=== PATIENT | female | born 1995 | race Hispanic/Latino ===

== ENCOUNTER 2017-12-07 00:53 | Inpatient (IN) | payer OTHER ==
[2017-12-07] MEDS ORDERED: MEPERIDINE HCL 25 MG/0.5 ML IV PRN (05:58)
[2017-12-07] MEDS ORDERED: CARBOPROST TROME 250 MCG/ML IM PRN (05:58)
[2017-12-07] MEDS ORDERED: METHYLERGONOVINE 0.2MG/ML AMP IM PRN (05:58)
[2017-12-07] MEDS ORDERED: PROMETHAZINE 25 MG/ML VIAL IM PRN (05:58)
[2017-12-07] MEDS ORDERED: Ringers Lactate 1,000 ML IV PRN (05:58)
[2017-12-07] MEDS ORDERED: BUTORPHANOL 1 MG/ML INJ IV PRN (05:58)
[2017-12-07] MEDS ORDERED: Ringers Lactate 1,000 ML IV SCH (06:00)
[2017-12-07] MEDS ORDERED: OXYTOCIN/LR 20 UNIT/1,000 ML BAG IV SCH (06:00)
[2017-12-07 06:12] LABS: RPR Titer ND
[2017-12-07 06:15] LABS: Urine Appearance CLEAR; Urine Bilirubin NEGATIVE (NEG); Urine Blood NEGATIVE (NEG); Urine Color YELLOW; Urine Glucose NEGATIVE (NEG); Urine Protein NEGATIVE (NEG); Urine Specific Gravity 1.025 (1.005-1.030); Urine Urobilinogen 0.2 mg/dL (0.2-1.0)
[2017-12-07 06:19] LABS: Urine Microscopic Reflex NO UMIC
[2017-12-07 06:27] LABS: Absolute Lymphocytes (CBC) 2.9 K/uL (0.7-4.9); Absolute Neutrophil 8.5 K/uL (1.8-8.0); Basophils % 0.4 % (0-1.3); Eosinophils % 0.8 % (0-4.4); Hematocrit 32.1 % (36.0-45.0); Lymphocytes % 23.3 % (15.3-44.8); MCH 31.5 pg (27.0-35.0); MCV 94.3 fL (80-100); MPV 7.9 fL (7.6-11.3); Monocytes % 8.1 % (3.3-12.3)
[2017-12-07 06:51] VITALS: BMI 27.3
--- NOTE | 2017-12-07 09:25 | PREOPHP ---
Date of Admission: 12/07/2017 This is a 22-year-old, primigravida, at 39 weeks 5 days for induction. Rh positive, immune to Rubell a. Negative beta strep screen. 2.5 cm, 50% effaced, vertex, -1 station. Rupture of membranes, araceli r fluid. Gita every 2 minutes. Labor talk given. Anticipate delivery sometime later today. BRET/JOYCE Voice ID: [id number]
[2017-12-07] MEDS ORDERED: ACETAMINOPHEN 500 MG TAB PO ONE (13:58)
[2017-12-07] MEDS ORDERED: ACETAMINOPHEN 500 MG TAB ONE (14:19)
--- NOTE | 2017-12-07 17:03 | PN ---
Subjective: The patient is now on 20 milliunits of Pitocin, cindy regularly. FHTs to have goo d variability. She is 2.5 cm, 60% effaced, vertex, -1 station, well applied. Anticipate more rapid progress once she gets to be about 4-5 cm. Full discussion with the patient. She has had [address] adol and 25 of Phenergan and doing well. BRET/JOYCE Voice ID: [id number] Report ID: [id number]
[2017-12-07] MEDS ORDERED: ROPIVACAINE HCL 100 ML IV PRN (17:33)
[2017-12-07] MEDS ORDERED: ROPIVACAINE HCL 0.2% 20ML AMP IV ONE (17:33)
[2017-12-07] MEDS ORDERED: FENTANYL CITR 100 MCG/2 ML IV ONE (17:34)
--- NOTE | 2017-12-07 20:34 | PN ---
The patient is now 3 cm, 80% effaced, but the baby is straight occiput posterior. She is instructed in pelvic rocks and we need to do those. Nurses have been trying to get her to do it but so far she is not really been cooperative. She knows if the baby stays in this position it may keep the labor g oing longer and possibly even results in failure to dilate and a . Her baby is not that larg e. I thinks she has an adequate pelvis, so we will get her do pelvic rocks and recheck her in about an hour to hour and a half. BRET/JOYCE Voice ID: [id number] Report ID: [id number]
[2017-12-07] MEDS ORDERED: NA CIT/CITRIC AC 30 ML ORAL UDC PO ONE (20:52)
[2017-12-07] MEDS ORDERED: CEFAZOLIN/NS 1gm 1 GM/50 ML BAG IVPB SCH (21:00)
[2017-12-07] MEDS ORDERED: METOCLOPRAMIDE 10 MG/2mL INJ IV SCH (21:00)
[2017-12-07] MEDS ORDERED: LIDOCAINE 2% INJ, 20 mL 0 ML ONE (21:22)
[2017-12-07] MEDS ORDERED: LIDOCAINE 2% W/EPI 1:200,000 MPF 20 ML VIAL IM ONE (21:25)
[2017-12-07] MEDS ORDERED: OXYTOCIN 10 UNIT/ML ML IV ONE (21:32)
[2017-12-07] MEDS ORDERED: MORPHINE SULFATE/PF 1 MG/ML (10 ML AMP) ONE (21:32)
[2017-12-07] MEDS ORDERED: CARBOPROST TROME 250 MCG/ML IM ONE (21:43)
[2017-12-07] MEDS ORDERED: METHYLERGONOVINE 0.2MG/ML AMP IM ONE (21:43)
[2017-12-07] MEDS ORDERED: EPHEDRINE SULF 50 MG/5 ML SYR ONE (21:52)
[2017-12-07 22:17] LABS: RPR (Rapid Plasma Reagin) NON-REACT (NON-REACT)
--- NOTE | 2017-12-07 23:31 | PN ---
This is a 22-year-old, 2, para 0, at 39 weeks 5 days. During the labor, progressed to 3 cm b ut has stopped at that point. She is occiput posterior. She has been doing pelvic rocks but has demetrius wn no change in over 4 hours now. The baby looks good on the monitor. Her vital signs are stable. She has agreed we should proceed with a at this point. Infection, blood loss, anesthetic co mplications, injury to bladder, bowel, ureter, postoperative complications, clots in legs, pneumonia discussed. The patient knows fully well this does not constitute all the possible problems that coul d occur during or following surgery. We will give her to 2 g of Ancef for prophylaxis. She has an e pidural which is functioning. Dr. Kim will boost the dose in the epidural. Preparations are abdi ng made at this time for expeditious . BRET/JOYCE Voice ID: [id number] Report ID: [id number]
--- NOTE | 2017-12-07 23:40 | OP ---
Surgeon: Jitendra Zavala MD This is a 22-year-old, 2, para 0, at 39 weeks 5 days, failure to progress in labor. The agustin ent progressed to 3 cm, but in spite of good firm contractions, did not change for the next 4-5 hours . Noted to be straight occiput posterior. Rh positive, immune to Rubella. Negative beta Strep scre en. The patient was taken to surgery. Full preoperative counseling concerning procedure and possibl e complications, including infection, blood loss, anesthetic complications, injury to bladder, bowel, ureter, postoperative complications, clots in legs, and pneumonia discussed. The patient knows full y well this does not constitute all the possible problems that could occur during or following surger y. Epidural during the labor, not sufficient for , so Dr. Kim perform spinal block anes thesia. Worked very well. Dr. Castellano was endodontic assistant surgeon. After the patient was prepped and draped, timeout was performed. Pfannenstiel incision was then crea nasir. The incision was carried to the fascia. The fascia was incised, and the incision carried trans versely bilaterally. Anterior fascial plane was developed with both blunt and sharp dissection. The underlying rectus muscle was . Peritoneum elevated and entered bluntly. Low transverse ut erine incision created. A 7 pound, 7 ounce male infant was delivered without difficulties. Apgars 9 and 9. Cord blood specimen was obtained. The placenta was removed manually. Uterus cleared of francisco t and blood and exteriorized. Uterus closed with a running-locked stitch of #1 chromic followed by a single [id number] stitch in the right angle for complete hemostasis. Mild hypertonus. 0.2 mg of Methergine given. Estimated blood loss 7923-1753 cc. Sacral promontory noted to be very prominen t. Uterus replaced in the peritoneal cavity. Gutters clear of clot and blood. Incision line checke d again. No further bleeding. The fascia was closed with #1 Vicryl after the rectus muscles were pu t together with 2 stitches of 0 Vicryl. Subcutaneous tissue was closed with 3-0 plain absorbable sta ples and then metal sim. The patient had been given 2 g of Ancef. Tolerated all procedures well . She was transferred back to her room in good condition. Final Diagnoses: Term intrauterine , 39 weeks 5 days, failure to progress in labor, primary section, epidural for labor, spinal block for section, mild uterine hypotonus. BRET/JOYCE Voice ID: [id number] Report ID: [id number]
[2017-12-08] MEDS ORDERED: PROMETHAZINE 25 MG/ML VIAL ONE (00:59)
[2017-12-08] MEDS ORDERED: D5LR 1,000 ML with OXYTOCIN 20 UNIT IV SCH ×2 (04:00)
[2017-12-08] MEDS ORDERED: CEFAZOLIN/SWI 2gm 2 GM/20 ML SYR ONE (04:56)
[2017-12-08] MEDS ORDERED: CEFAZOLIN 2 GM in NA CHLORIDE 0.9% 100 ML IVPB ONE (05:00)
[2017-12-08] MEDS ORDERED: FAMOTIDINE 20 MG/2 ML VIAL IV SCH (09:00)
[2017-12-08] MEDS ORDERED: Oxycodone HCl/Acetaminophen 1 TAB TAB PO PRN (11:16)
[2017-12-08] MEDS: IBUPROFEN 400 MG TAB PO PRN (11:27)
[2017-12-08] MEDS ORDERED: IBUPROFEN 200 MG TAB PO ONE (11:42)
--- NOTE | 2017-12-08 11:56 | PN ---
Postoperatively, doing quite well. Afebrile. Lochia is normal. No complaints whatsoever. She has not taken any pain medicines yet. We will discontinue her Zhong sometime later this afternoon, take out the IV later this morning if she can ambulate without any problems. We will begin to feed her la ter on this afternoon and possibly send her home tomorrow afternoon or evening or if not, Wednesday morn ing. Full discussion. She knows to call the office today to make an appointment for next week. She is given instructions for dismissal to report fever of 100 degrees or more, severe pain, heavy bleed ing, or any other type of problems when she does go home. The patient has had her Tdap shot already. She has no post spinal block problems. She is Rh positive and immune to Rubella. BRET/JOYCE Voice ID: [id number] Report ID: [id number]
[2017-12-08] MEDS: Oxycodone HCl/Acetaminophen 1 TAB TAB PO PRN ×2 (16:25→23:53)
--- NOTE | 2017-12-08 17:10 | RAD REPORT ---
EXAM DESCRIPTION: RAD - Abdomen 1 View (KUB) - 12/08/2017 5:05 pm CLINICAL HISTORY: Pain COMPARISON: None. FINDINGS: The bowel gas pattern is non-obstructive. No evidence of free air or pneumatosis. Moderate fecal retention noted. Skin sim are present inferiorly. No pathologic calcifications. IMPRESSION: Moderate fecal retention in the colon.
[2017-12-09] MEDS ORDERED: CEFTRIAXONE 1000 MG/VIAL IM ONE (00:59)
[2017-12-09] MEDS ORDERED: LIDOCAINE 1% MPF 2 ML AMPULE ONE ×2 (01:37→01:38)
[2017-12-09 03:49] LABS: HBsAG Nonreactive (Nonreactive)
[2017-12-09 04:52] LABS: Absolute Lymphocytes (CBC) 2.1 K/uL (0.7-4.9); Absolute Monocytes 1.5 K/uL (0.1-1.3); Absolute Neutrophil 18.1 K/uL (1.8-8.0); Basophils % 0.1 % (0-1.3); Eosinophils % 0.4 % (0-4.4); Hematocrit 27.7 % (36.0-45.0); Lymphocytes % 9.6 % (15.3-44.8); MCH 32.8 pg (27.0-35.0); MCV 93.7 fL (80-100); MPV 8.2 fL (7.6-11.3); Monocytes % 6.7 % (3.3-12.3); RBC Red Blood Cell Count 2.96 M/uL (3.86-4.86)
[2017-12-09 05:13] LABS: Blood Morphology Comment NOT SEEN (NOT SEEN); Platelet Estimate ADEQ
[2017-12-09] MEDS: Oxycodone HCl/Acetaminophen 1 TAB TAB PO PRN (10:46)
--- NOTE | 2017-12-09 11:51 | PN ---
Yesterday had epigastric discomfort. Upright of the abdomen showed no ileus or other problems and th at has subsequently resolved. Incisions looked good. During the night, the patient had a fever of 1 02. White count this morning was 21,000. The patient was given Rocephin 1 g IM last night. We will keep her until tomorrow morning, give her another gram of Rocephin around midnight tonight and then plan to send her home with Augmentin twice a day for 5-7 days. Probable mild endometritis. Full dis cussion with patient and family. Doing well this morning. She has been ambulating, voiding, and pas sing gas. Anticipate dismissal tomorrow morning if all temperatures remain normal. BRET/JOYCE Voice ID: [id number] Report ID: [id number]
[2017-12-09] MEDS: IBUPROFEN 400 MG TAB PO PRN (15:22)
[2017-12-09] MEDS ORDERED: IBUPROFEN 200 MG TAB PO ONE (15:45)
[2017-12-09] MEDS: CLINDAMYCIN HCL 150 MG CAP PO SCH ×2 (16:58→21:09)
[2017-12-10] MEDS ORDERED: CEFTRIAXONE 1000 MG/VIAL IM ONE
[2017-12-10] MEDS ORDERED: LIDOCAINE 1% MPF 2 ML AMPULE ONE ×2 (00:10→00:13)
[2017-12-10] MEDS: Oxycodone HCl/Acetaminophen 1 TAB TAB PO PRN ×2 (03:10→07:41)
[2017-12-10 07:19] VITALS: BP 108/64; TEMP 96.1
[2017-12-10] MEDS: CLINDAMYCIN HCL 150 MG CAP PO SCH (08:32)
--- NOTE | 2017-12-11 00:34 | DS ---
Date of Discharge: 12/10/2017 A 22-year-old primigravida at 39 weeks 5 days, underwent primary section for failure to prog ress in labor, persistent occiput posterior. Delivered of an estimated 7-pound male , Apgars 9 and 9. Epidural anesthesia during the labor, spinal block for delivery. Noted to have mild uterine hypotonus, 1100 cc blood loss, responded well to IV drip Pitocin, 0.2 mg of Methergine during the pr ocedure, was given 2 g of Ancef for prophylaxis before the procedure and afterwards. At the time of surgery noted to have the placental bed slightly shaggy. , had a temperature of 102.4, was started on Rocephin 1 g IM, and then given another g 24 hours later. She was also put on Cleocin 30 0 mg p.o. q.6 hours. She is now afebrile for the last 4 to 5 readings. She will be dismissed with A ugmentin to be taken 1000 mg b.i.d. for 7 days. Yeast precautions given. She is to see me in the of cee on Wednesday of next week for followup. She is to report any temperature elevation of 100 degrees or greater, severe pain, heavy bleeding, or any other type of abnormalities. She has the number for Labor and Delivery and will call over the weekend should she have any problems. No post spinal block problems are noted. She has had her Tdap administration. Final Diagnoses: 1.Term intrauterine , 39 weeks 5 days, failure to progress in labor, persistent occiput pos terior, plus very prominent sacral promontory. 2.Mild uterine hypotonus, probable endometritis, treated and responded. BRET/JOYCE Voice ID: [id number] Report ID: [id number]
== END 2017-12-10 08:46 | disposition home or self-care (01) | DRG 766 ==
LOC: 2ND-WC 05:09
PROVIDERS: ADMIT Specialist; ATTEND Specialist
PROC: 10907ZC Drainage of Amniotic Fluid, Therapeutic from Products of Conception, Via Natural or Artificial Opening (ICD-10-PCS; 2017-12-07)
PROC: 3E033VJ Introduction of Other Hormone into Peripheral Vein, Percutaneous Approach (ICD-10-PCS; 2017-12-07)
PROC: 10D00Z1 Extraction of Products of Conception, Low, Open Approach (ICD-10-PCS; principal; 2017-12-07 21:00)
DX: O62.0 Primary inadequate contractions (principal); Z37.0 Single live birth; Z3A.39 39 weeks gestation of pregnancy
CPT/HCPCS: 36415; 74018; 81003; 85014; 85025; 86592; 86850; 86900; 86901; 87340; 88305; 88307; J0595; J0690; J2001; J2210; J2550; J2590; J2765; J2795; J3010

== ENCOUNTER 2023-05-21 12:52 | Emergency (ER) | payer OTHER, SELFPAY ==
--- OUTSIDE RECORDS SUMMARY | 2023-05-21 12:55 | XMS REPORT | Continuity of Care Document ---
:1995 Author Organization [facility] t Address [address] [place] [address] Care Team Providers Name Role Phone PCP, PATIENT DOES NOT HAVE A Primary Care Physician UnavailBELIA Arriola Attending Clinician Unavailable GENARO VASQUEZ Attending Clinician Unavailable GENARO VASQUEZ Attending Clinician Unavailable Doctor Unassigned, [place] Attending Clinician Unavailable FUENTES FERRARI Attending Clinician Unavailable Nurse, [facility] Attending Clinician Unavailable Arleth Fox MD Attending Clinician ARLETH FOX Attending Clinician Unavailable Payers Payer Name Policy Type Policy Number Effective Date Expiration Date S dewey [facility] - [id number] 2020 00:00:00 OUT OF STATE Problems Condition Condition Condition Status Onset Resolution Last Treating Co mments Source Name Details Category Date Date Treatment Clinician Date Disease Active Uni vers examinatio examinatio 03-31 it y of n [place] test[place] 00 Medica l result result Branch Encounter Encounter Disease Active Uni vers for for 03-31 [place] 00 Medical progestin- progestin- Br anch releasing releasing intrauteri intrauteri ne ne contracept contracept danette device danette device (IUD) (IUD) Encounter Encounter Disease Active Uni vers for for 03-24 [place] of Nex[place] 00 [place] Disease Active Univers control control 03-24 [place] [facility] Generalize Generalize Disease Active U nivers d anxiety d anxiety 7-19 ity of disorder disorder 00:00: [place] 00 [facility] Open wound Open wound Disease Active U nivers of finger, of finger, 7-19 it y of initial initial 00:00: [place] encounter encounter 00 [facility] Branch Nexplanon Nexplanon Disease Active Uni vers insertion insertion 9-10 ity of 00:00: [address] Allergies, Adverse Reactions, Alerts Allergy Allergy Status Severity Reaction(s) Onset Inactive Treating Comm ents Source Name Type Date Date Clinician NO KNOWN Drug Active Univers ALLERGIE Class ity of S [facility] Social History Social Habit Start Date Stop Date Quantity Comments Source History SDOH University o f Alcohol Frequency [facility] edical Branch History SDOH University o f Alcohol Std [place] [facility] Dr[facility] Branch History SDOH University o f Alcohol Binge [place] Medic [facility] [place] Exposure to 2022-06-23 2022-07-03 Not sure University SARS-CoV-2 00:00:00 13:22:00 [facility] (event) [place] Alcohol intake 2022-07-03 2022-07-03 Current drinker Unive rsity of 00:00:00 00:00:00 of alcohol [facility] (finding) [place] Tobacco use and 2022-03-31 2022-03-31 Smokeless tobacco Un iversity of exposure 00:00:00 00:00:00 non-user [facility] Alcohol Comment 2021-05-09 2021-05-09 2-3x a week Universi ty of 00:00:00 00:00:00 [facility] Sex Ass[birth year] At [birth year] Universit y of 00:00:00 00:00:00 [facility] Smoking Status Start Date Stop Date Source Never smoked tobacco [facility] Medications Ordered Filled Start Stop Current Ordering Indication Dosage Frequency Signature Comments Components Source Medication Medication Date Date Medication? Clinician (SIG) Name Name No known 2021-09 No No known Unive rs medications 0-28 medication it y of 14:16: s [address] No known 2021-09 No No known Unive rs medications 0-28 medication it y of 14:16: s [address] levonorgest 2021- No [id number] 1{devic Univers reL 7-26 07-26 e} ity of (KYLEENA) 20:45: 19:43 [place] IUD 1 00 :00 [facility] levonorgest 2021- No [id number] 1{devi 1 Device, Univers reL 03-31 e} Intrauteri ity of (KYLEENA) 20:45: 19:43 [place] ONCE[place] I[place] 1 [place] :00 1 dose, On [facility] Branch 03/31/22 at 1545, Routine levonorgest 2021- No [id number] 1{devi Univers reL 03-31 e} ity of (KYLEENA) 20:45: 19:43 [place] IUD 1 00 :00 [facility] levonorgest 2021- No [id number] 1{devi 1 Device, Univers reL 03-31 e} Intrauteri ity of (KYLEENA) 20:45: 19:43 [place], ONCE[place] 1 00 :00 1 dose, On [facility] Branch 03/31/22 at 1545, Routine No known No No known Unive rs medications 03-31 medication it y of 14:41: s [address] No known No No known Unive rs medications 03-31 medication it y of 14:41: s [address] Vital Signs Vital Name Observation Time Observation Value Comments Source Systolic blood 2022-07-03 18:36:00 107 mm[Hg] Univer sity of pressure [facility] Diastolic blood 2022-07-03 18:36:00 70 mm[Hg] Unive rsity of [facility] Heart rate 2022-07-03 18:36:00 65 /min [facility] Body temperature 2022-07-03 18:36:00 37.17 Tracee [facility] Res[facility] rate 2022-07-03 18:36:00 16 /min [facility] Body height 2022-07-03 18:36:00 154.9 cm [facility] Body weight 2022-07-03 18:36:00 49.442 kg [facility] BMI 2022-07-03 18:36:00 20.60 kg/m2 [facility] Oxygen saturation in 2022-07-03 18:36:00 99 /min [facility] Arterial blood by [facility] Pulse oximetry [place] Systolic blood 2022-03-31 19:23:00 98 mm[Hg] Univer sity of pressure [facility] Diastolic blood 2022-03-31 19:23:00 64 mm[Hg] [facility] 2022-03-31 19:23:00 79 /min [facility] Body temperature 2022-03-31 19:23:00 36.61 Tracee [facility] Respiratory rate 2022-03-31 19:23:00 18 /min [facility] Body height 2022-03-31 19:23:00 154.9 cm [facility] Body weight 2022-03-31 19:23:00 48.671 kg [facility] BMI 2022-03-31 19:23:00 20.27 kg/m2 [facility] Procedures Procedure Date / Time Performed Performing Clinician [facility] ASSIGNMENT OF BENEFITS 2022-07-03 18:21:39 Doctor Unassigned, No [facility] DISCLOSURE AND 2022-03-31 05:01:00 Doctor Unassigned, No [facility] CONSENT, MEDICAL AND Name Medical [facility] SURGICAL PROCEDURES POCT TEST 2022-03-31 00:00:00 Genaro Vasquez [facility] Encounters Start End Encounter Admission Attending Care Care Encounter Source Date/Time Date/Time Type Type Clinicians Facility Department ID 2022-09-08 2022-09-08 Outpatient Roseline LEON [place] [id number] Univers 10:45:00 10:45:00 BELIA randle [facility] 2022-07-03 2022-07-03 Office Christina MSDELFINO GU 1.2.840.114 [id number] Univers 13:00:00 13:54:21 Visit Genaro RICKS [id number] it y of WOMEN'S [id number] [facility] [id number] [address] 2022-07-03 2022-07-03 Outpatient R CLAUDIOGENARO FLORES [facility] B [id number] Univers 13:00:00 13:54:21 LOUANNGENARO SAUCEDO david [facility] 2022-07-03 2022-07-03 Orders Doctor HENDRIX 1.2.840.114 [id number] Univers 00:00:00 00:00:00 Only Unassigned, DELILAH [id number] ity of [place] [facility] [id number] Vinod as [id number] [address] 2022-04-02 2022-04-02 Outpatient R VEGA [place] [id number] Univers 12:45:00 12:45:00 FUENTES [facility] 2022-03-31 2022-03-31 [facility] 1.2.840.114 [id number] Univers 14:00:00 14:30:00 Visit Genaro RICKS [id number] it y of WOMENS 4.2.7.2.686 [facility] [id number] [address] 2022-03-31 2022-03-31 Outpatient R CHRISTINA GENARO [facility] B [id number] Univers 14:00:00 14:00:00 CLAUDIOGENARO FLORES david [facility] 2022-03-31 2022-03-31 Outpatient R GENARO VASQUEZ [facility] B [id number] Univers 14:00:00 14:00:00 CLAUDIAGENARO THURSTON [facility] 2022-03-31 2022-03-31 Orders Doctor HENDRIX 1.2.840.114 [id number] Univers 00:00:00 00:00:00 Only Unassigned, DELILAH [id number] ity of [place] [facility] 4.2.7.2.686 Vinod as [id number] [address] 2022-03-30 2022-03-30 Nurse Nurse, Lkj [facility] 1.2.840.114 [id number] Univers 13:00:00 13:15:00 Visit Arleth Fox 350.1.13.10 ity of Genaro Vasquez [facility] 4.2.7.2.686 [facility] [id number] [address] 2022-03-30 2022-03-30 Outpatient R [place] [id number] Univers 13:00:00 13:00:00 ity [facility] 2022-03-30 2022-03-30 Outpatient R GENARO VASQUEZ [facility] B [id number] Univers 13:00:00 13:00:00 GENARO VASQUEZ [facility] 2022-03-18 2022-03-18 Outpatient R GENARO VASQUEZ [facility] B [id number] Univers 13:30:00 14:37:03 GENARO VASQUEZ [facility] 2022-03-18 2022-03-18 Office Christina [facility] 1.2.840.114 [id number] Univers 13:30:00 14:37:03 Visit Genaro RICKS [id number] it y of WOMEN'S 4.2.7.2.686 [facility] [id number] [address] 2022-03-16 2022-03-16 Outpatient R GEANRO VASQUEZ [facility] B [id number] Univers 08:30:00 08:30:00 LOUANNGENARO SAUCEDO [facility] 2022-02-17 2022-02-17 Outpatient R MELISSA FXON [place] [id number] Univers 15:00:00 15:00:00 ity [facility] 2021-05-16 2021-05-16 Office Arleth Fox [facility] 1.2.840.114 [id number] Univers 10:12:25 11:02:31 Visit Gianfranco 350.1.13.10 i ty max [place]2.7.2.686 [place] [id number] [place] dical [address] 2021-05-16 2021-05-16 Outpatient R MELISSA FOXN [place] [id number] Univers 10:00:00 10:00:00 ity [facility] 2021-05-15 2021-05-15 Outpatient R ARLETH FOX [place] [id number] Univers 09:00:00 09:00:00 ity [facility] 2021-05-09 2021-05-09 Office Arleth Fox [facility] 1.2.840.114 [id number] Univers 08:59:39 09:52:56 Visit [place] 350.1.13.10 i ty [place] 4[place]2.7.2.[place] [id number] [place] dical nal [address] [place] [address] 2021-05-09 2021-05-09 Office Arleth Fox [facility] 1.2.840.114 [id number] Univers 08:59:39 09:52:56 Visit [place] 350.1.13.10 i ty [place] 4.2.7.2.[place] [id number] [place] dic[address] 2021-05-09 2021-05-09 Outpatient R ARLETH FOX [place] [id number] Univers 08:30:00 08:30:00 ity [facility] 2021-05-09 2021-05-09 Orders Doctor RUMA 1.2.840.114 [id number] Univers 00:00:00 00:00:00 Only Unassigned, DELILAH 350.1.13.10 ity of [place] [facility] 4.2.7.2.686 Vinod as [id number] [address] 2021-05-09 2021-05-09 Orders Doctor RUMA 1.2.840.114 [id number] Univers 00:00:00 00:00:00 Only Unassigned, DELILAH 350.1.13.10 ity of [place] [facility] 4.2.7.2.686 Vinod as [id number] [address] 2021-02-20 2021-02-20 Outpatient ARLETH WEIR [place] [id number] Univers 09:00:00 09:00:[address] [facility] Results Test Description Test Time Test Comments Results Result Comments Source POCT TEST 2022-03-31 19:26:00 Test Item Value Reference Range Interpretation Comme nts POCT PREG (test code = 1605) Negative On board controls acceptable with C Line (test code = 3574) Yes POCT PREG LOT # (test code = 3575) POCT PREG TEST DATE (test code = 3576) [id number] 19:26:00 Test Item Value Reference Range Interpretation Comments POCT PREG (test code = 1605) Negative On board controls acceptable with C Yes Line (test code = 3574) POCT PREG LOT # (test code = 3575) POCT PREG TEST DATE (test code = 3576) [facility]
[2023-05-21 13:43] LABS: SARS-CoV-2 Antigen Rapid Res Negative (Negative)
--- NOTE | 2023-05-21 14:03 | EDPHYS ---
Physician Documentation [facility] Name: Linsey Rossi Age: 27 yrs Sex: Female : 1995 Arrival Date: 05/21/2023 Time: 12:52 Bed 11 Private MD: ED Physician Jarred Zamudio HPI: 05/21 14:48 This 27 yrs old Female presents to ER via Ambulatory with complaints of Pain sb4 All Over, Covid Exposed. 14:49 Onset: The symptoms/episode began/occurred 2 day(s) ago. Associated signs and sb4 symptoms:. patient with body aches, generalized weakness, fatigue, stuffy nose x 2 days. has been around people with covid and wants to be checked. no fever, nausea, vomiting, no underlying breathing conditions. Historical: - Allergies: 13:09 No Known Allergies; hb - Home Meds: 13:09 None [Active]; hb - PMHx: 13:09 None; hb - PSHx: 13:09 Ectopic ; section; Knee - Left; hb - Immunization history:: Adult Immunizations up to date. - Social history:: Smoking status: Patient denies any tobacco usage or history of. ROS: 14:51 Constitutional: Positive for body aches, fatigue, Negative for fever, poor PO intake. sb4 14:51 ENT: Positive for sinus congestion. 14:51 Respiratory: Positive for cough. 14:51 All other systems are negative. 14:52 Respiratory: Negative for shortness of breath, cough, wheezing, and pleuritic chest sb4 pain. Exam: 14:51 Constitutional: This is a well developed, well nourished patient who is awake, alert, sb4 and in no acute distress. Head/Face: Normocephalic, atraumatic. Eyes: Extra-ocular motions intact. Periorbital areas with no swelling, redness, or edema. ENT: Mucous membranes moist. Cardiovascular: Regular rate and rhythm with a normal S1 and S2. Respiratory: Lungs have equal breath sounds bilaterally, clear to auscultation and percussion. No rales, rhonchi or wheezes noted. No increased work of breathing, no retractions or nasal flaring. Abdomen/GI: Soft, non-tender, no distension. Skin: Warm, dry with normal turgor. Normal color with no rashes, no lesions, and no evidence of cellulitis. MS/ Extremity: Pulses equal, no cyanosis. Neurovascular intact. Full, normal range of motion. Neuro: Awake and alert, GCS 15, oriented to person, place, time, and situation. Cranial nerves II-XII grossly intact. Motor strength 5/5 in all extremities. Sensory grossly intact. Cerebellar exam normal. Normal gait. Vital Signs: 13:08 BP 111 / 97; Pulse 74; Resp 16; Temp 99.1(O); Pulse Ox 100% on R/A; Weight 52.16 kg; hb Height 5 ft. 1 in. ; Pain 7/10; 13:08 Body Mass Index 21.73 (52.16 kg, 154.94 cm) hb 13:08 Pain Scale: Adult hb MDM: 13:02 Patient medically screened. sb4 14:51 Differential diagnosis: viral Infection, bacterial infection, URI, bronchitis. Data sb4 reviewed: vital signs, nurses notes, lab test result(s), and as a result, I will discharge patient. Counseling: I had a detailed discussion with the patient and/or guardian regarding the historical points, exam findings, and any diagnostic results supporting the discharge/admit diagnosis, lab results, to return to the emergency department if symptoms worsen or persist or if there are any questions or concerns that arise at home. 05/21 13:07 Order name: SARS RAPID; Complete Time: 13:50 sb4 05/21 13:07 Order name: Flu; Complete Time: 13:53 sb4 Administered Medications: No medications were administered Disposition: 15:02 Co-signature as Attending Physician, Jarred QUISPE was immediately available on-site ms3 in the Emergency Department for consultation in the care of the patient. Disposition Summary: 05/21/23 14:02 Discharge Ordered Location: Home sb4 Problem: new sb4 Symptoms: are unchanged sb4 Condition: Stable sb4 Diagnosis - Acute upper respiratory infection, unspecified sb4 Followup: sb4 - With: Private Physician - When: As needed - Reason: Recheck today's complaints, Continuance of care, Re-evaluation by your physician Discharge Instructions: - Discharge Summary Sheet sb4 - Viral Respiratory Infection, [id number] sb4 Forms: - Work release form sb4 - Medication Reconciliation Form sb4 - Thank You Letter sb4 - Antibiotic Education sb4 - Prescription Opioid Use sb4 - Patient Portal Instructions sb4 - Leadership Thank You Letter sb4 Signatures: Dispatcher [employer] Evelina Torre, RN Jarred Salcido DO DO ms3 Bertha Moran, JUAN MARTINEZ sb4
--- NOTE | 2023-05-21 14:03 | ER ---
Nurse's Notes [facility] Name: Linsey Rossi Age: 27 yrs Sex: Female : 1995 Arrival Date: 05/21/2023 Time: 12:52 Bed 11 Private MD: Diagnosis: Acute upper respiratory infection, unspecified Presentation: 05/21 13:08 Chief complaint: Fatigue, malaise, headache, body aches, and nausea x 2 days. Coworkers hb recently tested COVID +. Coronavirus screen: Client presents with at least one sign or symptom that may indicate coronavirus-19. Provider contacted for isolation considerations. Ebola Screen: No symptoms or risks identified at this time. Initial Sepsis Screen: Does the patient meet any 2 criteria? No. Patient's initial sepsis screen is negative. Does the patient have a suspected source of infection? No. Patient's initial sepsis screen is negative. Risk Assessment: Do you want to hurt yourself or someone else? Patient reports no desire to harm self or others. Onset of symptoms was May 20, 2023. 13:08 Method Of Arrival: Ambulatory hb 13:08 Acuity: MARCIN 4 hb Historical: - Allergies: 13:09 No Known Allergies; hb - Home Meds: 13:09 None [Active]; hb - PMHx: 13:09 None; hb - PSHx: 13:09 Ectopic ; section; Knee - Left; hb - Immunization history:: Adult Immunizations up to date. - Social history:: Smoking status: Patient denies any tobacco usage or history of. Screenin:00 [facility] ED Fall Risk Assessment (Adult) Score/Fall Risk Level 0 - 2 = Low Risk hb Oriented to surroundings, Maintained a safe environment. Abuse screen: Denies threats or abuse. Denies injuries from another. Nutritional screening: No deficits noted. Tuberculosis screening: No symptoms or risk factors identified. Assessment: 13:40 General: Appears in no apparent distress. Behavior is calm, cooperative. Pain: Pain hb currently is 7 out of 10 on a pain scale. Neuro: Level of Consciousness is awake, alert, obeys commands, Oriented to person, place, time, situation, Reports headache. Cardiovascular: Patient's skin is warm and dry. Respiratory: Respiratory effort is even, unlabored, Respiratory pattern is regular, symmetrical. GI: No signs and/or symptoms were reported involving the gastrointestinal system. : No signs and/or symptoms were reported regarding the genitourinary system. EENT: No signs and/or symptoms were reported regarding the EENT system. Derm: Skin is pink, warm \T\ dry. Musculoskeletal: No signs and/or symptoms reported regarding the musculoskeletal system. Vital Signs: 13:08 BP 111 / 97; Pulse 74; Resp 16; Temp 99.1(O); Pulse Ox 100% on R/A; Weight 52.16 kg; hb Height 5 ft. 1 in. ; Pain 7/10; 13:08 Body Mass Index 21.73 (52.16 kg, 154.94 cm) hb 13:08 Pain Scale: Adult hb ED Course: 12:56 Patient arrived in ED. mg5 12:56 Bertha Moran PA-C is PHCP. sb4 12:56 Jarred Zamudio DO is Attending Physician. sb4 13:03 Andres Vargas, RN is Primary Nurse. jl7 13:09 Triage completed. hb 13:10 Arm band placed on. hb 13:16 Flu Sent. hb 13:16 SARS RAPID Sent. hb 13:45 Patient has correct armband on for positive identification. Provided Education on: . hb 14:12 No provider procedures requiring assistance completed. Patient did not have IV access hb during this emergency room visit. Administered Medications: No medications were administered Medication: 14:12 VIS not applicable for this client. hb Outcome: 14:02 Discharge ordered by . sb4 14:12 Discharged to home ambulatory. hb 14:12 Condition: stable 14:12 Discharge instructions given to patient, Instructed on discharge instructions, follow up and referral plans. medication usage, Demonstrated understanding of instructions, follow-up care, medications. 14:13 Patient left the ED. hb Signatures: Evelina Hollis RN RN Andres Hennessy RN RN jl7 Bertha Moran PA-C PA-C sb4 [place], [place] mg5
[2023-05-21 15:15] VITALS: BP 111/97; TEMP 99.1; O2SAT 100
== END 2023-05-21 14:13 | disposition home or self-care (01) ==
LOC: ER 12:52
DX: J06.9 Acute upper respiratory infection, unspecified (principal); Z20.822 Contact with and (suspected) exposure to COVID-19
CPT/HCPCS: 36415; 87804; 87811; 99283